=== PATIENT | male | born 1945 | race Caucasian/White ===

== ENCOUNTER 2023-11-23 15:10 | Inpatient (IN) | payer MEDICARE, BC ==
[~2023-11-23] VITALS: Ht 177.8 cm; Wt 75.0 kg
[2023-11-23 15:41] LABS: BASOPHILS # (AUTO) 0.1 X10'3 (0-0.2); EOSINOPHILS # (AUTO) 0.3 X10'3 (0-0.9); EOSINOPHILS % (AUTO) 3.3 % (0-6); HEMATOCRIT 43.3 % (42.0-52.0); HEMOGLOBIN 14.7 g/dl (14.0-17.9); LYMPHOCYTES # (AUTO) 1.9 X10'3 (1.1-4.8); LYMPHOCYTES % (AUTO) 21.8 % (21-51); MEAN CORPUSCULAR HEMOGLOBIN 31.2 PG (27.0-31.0); MEAN CORPUSCULAR HGB CONC 33.8 g/dL (33.0-36.5); MEAN CORPUSCULAR VOLUME 92.3 FL (78-98); MEAN PLATELET VOLUME 7.6 FL (7.4-10.4); MONOCYTES # (AUTO) 0.7 X10'3 (0-0.9); MONOCYTES % (AUTO) 8.5 % (2-12); NEUTROPHILS # (AUTO) 5.6 X10'3 (1.8-7.7); NEUTROPHILS % (AUTO) 65.4 % (42-75); PLATELET COUNT 321 X10'3 (140-440); RED CELL DISTRIBUTION WIDTH 12.8 % (11.5-14.5); WHITE BLOOD COUNT 8.5 X10'3 (4.5-11.0)
[2023-11-23 15:49] LABS: ALANINE AMINOTRANSFERASE 21 U/L (12-78); ALBUMIN 4.4 G/DL (3.4-5.0); ALBUMIN/GLOBULIN RATIO 1.2 (1.1-1.5); ALKALINE PHOSPHATASE 73 IU/L (46-116); ANION GAP 9 (8-16); ASPARTATE AMINO TRANSFERASE 7 U/L (10-37); BILIRUBIN,TOTAL 0.6 MG/DL (0.1-1.0); BLOOD UREA NITROGEN 26 MG/DL (7-18); BUN/CREATININE RATIO 16.9 (10.0-20.0); CALCIUM 9.3 MG/DL (8.5-10.1); CHLORIDE 101 MMOL/L (99-107); CREATININE 1.54 MG/DL (0.60-1.10); GLUCOSE 132 MG/DL (70-104); POTASSIUM 4.6 MMOL/L (3.5-5.1); SODIUM 135 MMOL/L (135-145); TOTAL CARBON DIOXIDE 24.8 MMOL/L (24-32); TOTAL PROTEIN 8.1 G/DL (6.4-8.2); eCRCL 42 ML/MIN; eGFR 44 ML/MIN
[2023-11-23 15:53] LABS: PRO BRAIN NATRIURETIC PEPTIDE 94 PG/ML (0-450)
[2023-11-23] MEDS ORDERED: diltiazem 5mg/ml 5ml inj. IV ONE (16:20)
[2023-11-23] MEDS ORDERED: normal saline 500ml IV soln 500 ML IV ONE (16:20)
[2023-11-23] MEDS ORDERED: acetaminophen 325mg tablet PO PRN ×2 (18:15)
[2023-11-23] MEDS ORDERED: morphine 2 MG/ML inj. syringe IV PRN ×2 (18:15)
[2023-11-23] MEDS ORDERED: normal saline 1000ml 1,000 ML IV SCH (18:15)
[2023-11-23] MEDS ORDERED: magnesium 2GM in 50ml NS 50 ML IV PRN (18:15)
[2023-11-23] MEDS ORDERED: potassium Cl 20 mEq SR tablet PO PRN ×2 (18:15)
[2023-11-23] MEDS ORDERED: HYDROcodone/acetaminophen 5mg/325mg tablet PO PRN (18:15)
[2023-11-23] MEDS ORDERED: potassium Cl 40MEQ/1/2NS 520ml 520 ML IV PRN (18:15)
[2023-11-23] MEDS ORDERED: magnesium 4gm in 100ml NS 100 ML IV PRN (18:15)
[2023-11-23] MEDS ORDERED: ondansetron/PF 4mg/2ml inj IV PRN (18:15)
[2023-11-23] MEDS ORDERED: magnesium Cl slow-release 64mg tablet PO PRN (18:15)
[2023-11-23] MEDS ORDERED: lisinopril 10 MG tablet PO ONE (18:20)
[2023-11-23] MEDS ORDERED: LIRA0.6P SUBCUT (18:59)
[2023-11-23] MEDS ORDERED: CARVEDILOL PO (18:59)
[2023-11-23] MEDS ORDERED: FLO0.4C PO (18:59)
[2023-11-23] MEDS ORDERED: OLME5TAB32 PO (18:59)
[2023-11-23] MEDS ORDERED: METF-436 PO (18:59)
[2023-11-23] MEDS ORDERED: ATOR40TA PO (18:59)
[2023-11-23] MEDS ORDERED: OMEPRAZOLE PO (18:59)
[2023-11-23 19:26] LABS: THYROID STIMULATING HORMONE 1.66 ulU/ml (0.34-4.50)
[2023-11-23] MEDS ORDERED: temazepam 15mg capsule PO ONE (20:20)
[2023-11-23] MEDS ORDERED: insulin Lispro (HumaLOG) vial - multi-dose SQ SCH (20:40)
[2023-11-23] MEDS ORDERED: DEXTROSE 15 GM of carb/4 tabs (each vial/BOTTLE has 4 tablets) PO PRN ×2 (20:40)
[2023-11-23] MEDS ORDERED: glucagon, human recombinant 1mg kit SUBCUT PRN (20:40)
[2023-11-23] MEDS ORDERED: MESSAGE TO PHARMACY PO ONE (20:40)
[2023-11-23] MEDS ORDERED: dextrose 50%-water 50ml dispensing syringe IV PRN ×2 (20:40)
[2023-11-23] MEDS: diltiazem-NS 100mg/100ml 100 ML IV SCH (20:41)
[2023-11-23] MEDS: insulin glargine (Lantus) pen - multi-dose SQ SCH (21:00)
[2023-11-24] VITALS (9 sets, daily range): BP systolic 91–121; BP diastolic 66–92; PULSE 83–115; RESP 16–22; TEMP 97.6–97.8; O2SAT 94–100
[2023-11-24 05:09] LABS: EOSINOPHILS # (AUTO) 0.2 X10'3 (0-0.9); HEMOGLOBIN 14.7 g/dl (14.0-17.9); MEAN PLATELET VOLUME 7.5 FL (7.4-10.4); PLATELET COUNT 287 X10'3 (140-440)
[2023-11-24 05:10] LABS: BASOPHILS # (AUTO) 0.1 X10'3 (0-0.2); BASOPHILS % (AUTO) 0.8 % (0-1); EOSINOPHILS % (AUTO) 1.8 % (0-6); HEMATOCRIT 43.5 % (42.0-52.0); LYMPHOCYTES # (AUTO) 1.4 X10'3 (1.1-4.8); LYMPHOCYTES % (AUTO) 13.6 % (21-51); MEAN CORPUSCULAR HEMOGLOBIN 31.5 PG (27.0-31.0); MEAN CORPUSCULAR HGB CONC 33.9 g/dL (33.0-36.5); MONOCYTES # (AUTO) 0.8 X10'3 (0-0.9); MONOCYTES % (AUTO) 7.6 % (2-12); NEUTROPHILS % (AUTO) 76.2 % (42-75); RED BLOOD COUNT 4.68 X10'6 (4.70-6.10); RED CELL DISTRIBUTION WIDTH 12.9 % (11.5-14.5); WHITE BLOOD COUNT 10.6 X10'3 (4.5-11.0)
[2023-11-24 05:24] LABS: ALANINE AMINOTRANSFERASE 21 U/L (12-78); ALBUMIN 3.9 G/DL (3.4-5.0); ALBUMIN/GLOBULIN RATIO 1.2 (1.1-1.5); ALKALINE PHOSPHATASE 70 IU/L (46-116); ANION GAP 10 (8-16); ASPARTATE AMINO TRANSFERASE 12 U/L (10-37); BILIRUBIN,TOTAL 0.8 MG/DL (0.1-1.0); BLOOD UREA NITROGEN 20 MG/DL (7-18); BUN/CREATININE RATIO 17.5 (10.0-20.0); CALCIUM 9.2 MG/DL (8.5-10.1); CHLORIDE 103 MMOL/L (99-107); CREATININE 1.14 MG/DL (0.60-1.10); GLUCOSE 118 MG/DL (70-104); POTASSIUM 4.4 MMOL/L (3.5-5.1); SODIUM 136 MMOL/L (135-145); TOTAL CARBON DIOXIDE 23.4 MMOL/L (24-32); TOTAL PROTEIN 7.1 G/DL (6.4-8.2); eCRCL 57 ML/MIN; eGFR 62 ML/MIN
[2023-11-24] MEDS: enoxaparin 40mg/0.4ml syringe SUBCUT SCH (08:00)
[2023-11-24] MEDS: carVEDilol 3.125mg tablet PO SCH ×2 (08:00→21:16)
[2023-11-24] MEDS ORDERED: normal saline 500ml IV soln 500 ML IV ONE (10:10)
[2023-11-24] MEDS: diltiazem-NS 100mg/100ml 100 ML IV SCH (16:44)
[2023-11-24] MEDS: insulin glargine (Lantus) pen - multi-dose SQ SCH (21:00)
[2023-11-24] MEDS: apixaban 5mg tablet PO SCH (21:16)
[2023-11-25] VITALS (13 sets, daily range): BP systolic 81–154; BP diastolic 62–109; PULSE 65–153; RESP 13–18; TEMP 97.6–98.1; O2SAT 94–99
[2023-11-25 07:42] LABS: BASOPHILS # (AUTO) 0.1 X10'3 (0-0.2); BASOPHILS % (AUTO) 0.6 % (0-1); EOSINOPHILS # (AUTO) 0.2 X10'3 (0-0.9); HEMATOCRIT 41.7 % (42.0-52.0); LYMPHOCYTES # (AUTO) 1.6 X10'3 (1.1-4.8); LYMPHOCYTES % (AUTO) 14.3 % (21-51); MEAN CORPUSCULAR HEMOGLOBIN 31.1 PG (27.0-31.0); MEAN CORPUSCULAR HGB CONC 33.5 g/dL (33.0-36.5); MEAN CORPUSCULAR VOLUME 92.8 FL (78-98); MEAN PLATELET VOLUME 7.6 FL (7.4-10.4); MONOCYTES # (AUTO) 1.1 X10'3 (0-0.9); MONOCYTES % (AUTO) 10.3 % (2-12); NEUTROPHILS # (AUTO) 7.9 X10'3 (1.8-7.7); NEUTROPHILS % (AUTO) 72.8 % (42-75); PLATELET COUNT 308 X10'3 (140-440); RED BLOOD COUNT 4.49 X10'6 (4.70-6.10); WHITE BLOOD COUNT 10.9 X10'3 (4.5-11.0)
[2023-11-25] MEDS: enoxaparin 40mg/0.4ml syringe SUBCUT SCH (08:00)
[2023-11-25 08:20] LABS: ALANINE AMINOTRANSFERASE 17 U/L (12-78); ALBUMIN 3.8 G/DL (3.4-5.0); ALBUMIN/GLOBULIN RATIO 1.1 (1.1-1.5); ALKALINE PHOSPHATASE 64 IU/L (46-116); ANION GAP 9 (8-16); ASPARTATE AMINO TRANSFERASE 10 U/L (10-37); BILIRUBIN,TOTAL 0.8 MG/DL (0.1-1.0); BLOOD UREA NITROGEN 21 MG/DL (7-18); BUN/CREATININE RATIO 15.8 (10.0-20.0); CALCIUM 8.6 MG/DL (8.5-10.1); CHLORIDE 101 MMOL/L (99-107); CREATININE 1.33 MG/DL (0.60-1.10); GLUCOSE 124 MG/DL (70-104); SODIUM 135 MMOL/L (135-145); TOTAL CARBON DIOXIDE 24.6 MMOL/L (24-32); TOTAL PROTEIN 7.3 G/DL (6.4-8.2); eCRCL 49 ML/MIN; eGFR 52 ML/MIN
[2023-11-25] MEDS: apixaban 5mg tablet PO SCH ×3 (08:36→20:11)
[2023-11-25] MEDS: carVEDilol 3.125mg tablet PO SCH ×3 (08:37→20:11)
[2023-11-25] MEDS ORDERED: ringers solution, lacted 1,000 ML IV ONE (09:50)
[2023-11-25] MEDS: ringers solution, lacted 1,000 ML IV SCH ×3 (12:21→23:10)
[2023-11-25] MEDS ORDERED: APIX5TAB3 PO ×2 (13:59→14:43)
[2023-11-25] MEDS ORDERED: metoprolol tartrate 50mg tablet PO ONE (14:20)
[2023-11-25] MEDS ORDERED: metoprolol tartrate 25mg tablet PO SCH (20:00)
[2023-11-25] MEDS: insulin glargine (Lantus) pen - multi-dose SQ SCH (21:00)
[2023-11-25] MEDS: HYDROcodone/acetaminophen 10/325mg tab PO PRN (21:36)
[2023-11-26 02:00] VITALS: BP 99/63; PULSE 77; RESP 14; TEMP 97.5; O2SAT 96
[2023-11-26] MEDS: HYDROcodone/acetaminophen 10/325mg tab PO PRN (03:48)
[2023-11-26] MEDS: ringers solution, lacted 1,000 ML IV SCH (05:50)
[2023-11-26 06:06] VITALS: BP 113/75; PULSE 92; RESP 10; TEMP 97.9; O2SAT 100
[2023-11-26 07:51] VITALS: PULSE 85
[2023-11-26] MEDS: carVEDilol 3.125mg tablet PO SCH (07:52)
[2023-11-26] MEDS: apixaban 5mg tablet PO SCH (07:53)
[2023-11-26] MEDS ORDERED: atorvastatin 20mg tablet PO SCH (08:00)
[2023-11-26] MEDS ORDERED: losartan 50mg tablet PO SCH (08:00)
[2023-11-26] MEDS ORDERED: tamsulosin 0.4mg capsule PO SCH (08:00)
[2023-11-26 09:04] LABS: BASOPHILS # (AUTO) 0.1 X10'3 (0-0.2); BASOPHILS % (AUTO) 0.6 % (0-1); EOSINOPHILS # (AUTO) 0.1 X10'3 (0-0.9); EOSINOPHILS % (AUTO) 1.6 % (0-6); HEMATOCRIT 39.8 % (42.0-52.0); HEMOGLOBIN 13.7 g/dl (14.0-17.9); LYMPHOCYTES # (AUTO) 1.6 X10'3 (1.1-4.8); LYMPHOCYTES % (AUTO) 19.3 % (21-51); MEAN CORPUSCULAR HEMOGLOBIN 31.9 PG (27.0-31.0); MEAN CORPUSCULAR HGB CONC 34.4 g/dL (33.0-36.5); MEAN CORPUSCULAR VOLUME 92.8 FL (78-98); MEAN PLATELET VOLUME 7.2 FL (7.4-10.4); MONOCYTES # (AUTO) 1.2 X10'3 (0-0.9); MONOCYTES % (AUTO) 14.6 % (2-12); NEUTROPHILS # (AUTO) 5.4 X10'3 (1.8-7.7); NEUTROPHILS % (AUTO) 63.9 % (42-75); PLATELET COUNT 266 X10'3 (140-440); RED BLOOD COUNT 4.29 X10'6 (4.70-6.10); RED CELL DISTRIBUTION WIDTH 12.7 % (11.5-14.5); WHITE BLOOD COUNT 8.5 X10'3 (4.5-11.0)
[2023-11-26 09:18] LABS: ALANINE AMINOTRANSFERASE 18 U/L (12-78); ALBUMIN 3.5 G/DL (3.4-5.0); ALBUMIN/GLOBULIN RATIO 0.9 (1.1-1.5); ALKALINE PHOSPHATASE 70 IU/L (46-116); ANION GAP 8 (8-16); ASPARTATE AMINO TRANSFERASE 11 U/L (10-37); BILIRUBIN,TOTAL 1.2 MG/DL (0.1-1.0); BLOOD UREA NITROGEN 18 MG/DL (7-18); BUN/CREATININE RATIO 14.4 (10.0-20.0); CALCIUM 8.5 MG/DL (8.5-10.1); CHLORIDE 98 MMOL/L (99-107); CREATININE 1.25 MG/DL (0.60-1.10); GLUCOSE 219 MG/DL (70-104); SODIUM 131 MMOL/L (135-145); TOTAL PROTEIN 7.2 G/DL (6.4-8.2); eCRCL 52 ML/MIN; eGFR 56 ML/MIN
[2023-11-26] MEDS ORDERED: LOP25T PO (09:27)
== END 2023-11-26 11:01 | disposition home or self-care (01) | DRG 309 ==
LOC: ER 15:11 → ED HOLD 18:18 → EDBEDREQ 11-24 05:57 → PCU 3S 11-24 07:47
PROVIDERS: ADMIT Internal Medicine; ATTEND Family Medicine
DX: I48.91 Unspecified atrial fibrillation (principal); N17.9 Acute kidney failure, unspecified; I12.9 Hypertensive chronic kidney disease with stage 1 through stage 4 chronic kidney disease, or unspecified chronic kidney disease; N40.0 Benign prostatic hyperplasia without lower urinary tract symptoms; N18.30 Chronic kidney disease, stage 3 unspecified; E78.00 Pure hypercholesterolemia, unspecified; E11.22 Type 2 diabetes mellitus with diabetic chronic kidney disease; Z79.899 Other long term (current) drug therapy; Z82.49 Family history of ischemic heart disease and other diseases of the circulatory system; Z87.891 Personal history of nicotine dependence
CPT/HCPCS: 36415; 71045; 80053; 82948; 83880; 84443; 84484; 85025; 93005; 93306; 99285; G0378; J1650; J1815; J2270; J3490; J7030; J7040; J7120